=== PATIENT | female | born 2005 | race Two or more races ===

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

== ENCOUNTER 2025-02-19 19:12 | Observation (INO) | payer MEDICAID, SELFPAY ==
[2025-02-19] VITALS (30 sets, daily range): BP systolic 126; BP diastolic 65; PULSE 60–105; RESP 18–99; TEMP 36.9; O2SAT 93–100; BMI 27.0
--- NOTE | 2025-02-19 20:30 | XR_ITS ---
Examination: fairly limited TECHNIQUE: Limited transabdominal sonographic images pelvis Date and time: February 19, 2025 10:39 PM INDICATIONS: Labor evaluation, unknown amniotic fluid index FINDINGS: Amniotic fluid index 16.5 cm IMPRESSION: Amniotic fluid index 16.5 cm
--- NOTE | 2025-02-19 20:30 | XR_ITS ---
Examination: OB Transvaginal ultrasound of the pelvis, limited Technique: Transvaginal sonographic images pelvis performed using lua scale imaging Exam date and time: February 19, 2025 10:10 PM INDICATIONS: Labor evaluation, unknown cervical length. FINDINGS: Cervix 3.9 cm closed IMPRESSION: Cervix 3.9 cm closed
[2025-02-19] MEDS: TERBUTALINE SULF INJ 1 MG/ML VIAL 0.25 MG SC (21:41)
[2025-02-19 22:01] LABS: Collection Type, Urine Clean Catch
[2025-02-19 22:11] LABS: Bilirubin,Urine Negative (Negative); Blood,Urine Negative (Negative); Clarity,Urine Turbid (Clear/Hazy); Color,Urine Lt-Yellow (Lt Yel-Yel); Glucose, Urine Negative (Negative); Ketones,Urine Negative (Negative); Leukocyte Esterase,Urine Positive (Negative); Nitrite,Urine Negative (Negative); PH,Urine 6.5 (5.0-7.0); Protein,Urine Negative (Neg - Trace); RBC,Urine 9 /hpf (0-3); Squamous Epithelial Cell,Urine 20 /hpf (0-5); Urobilinogen,Urine Negative mg/dL (0.0-1.0); WBC,Urine 46 /hpf (0-5)
[2025-02-19] MEDS: ACETAMINOPHEN 500 MG TABLET 1000 MG PO (23:28)
--- NOTE | 2025-02-20 10:22 | PD.LDPN ---
Documentation for date of: 02/20/25 OB Labor Progress Note Pelvic Exam Amniotic membrane status: Intact Contractions Monitor mode: External Contraction frequency: 2-3 Contraction intensity: Mild Assessment and Plan Comments: Concetta is a 19yo with SIUP at 31&4wk presenting to L&D for decreased movements and tightening of her abdomen . She notes no lof, no vaginal bleeding. Current : This has been uncomplicated, she has OB care with Dr. Jenae FORDE negative other than what was described above. Vitals wnl, afebrile General: well developed, well nourished, no acute distress, conversant Cardiac: normal heart rate Lungs: breathing without distress Abdomen: soft, gravid, non-tender, no rebound or guarding NST: reassuring for gestational age with 10x10 accels, no decels, mod corrine Parnell: ctx q3-4min Labs: Urinalysis turbid, spec grav 1.01, +LE, 9RBC, 46WBC, no bacteria, 20 squam (not clean catch) Vaginitis swab positive for farhad and bacterial vaginosis Radiology: Examination: OB Transvaginal ultrasound of the pelvis, limited Technique: Transvaginal sonographic images pelvis performed using lua scale imaging Exam date and time: February 19, 2025 10:10 PM INDICATIONS: Labor evaluation, unknown cervical length. FINDINGS: Cervix 3.9 cm closed IMPRESSION: Cervix 3.9 cm closed Examination: fairly limited TECHNIQUE: Limited transabdominal sonographic images pelvis Date and time: February 19, 2025 10:39 PM INDICATIONS: Labor evaluation, unknown amniotic fluid index FINDINGS: Amniotic fluid index 16.5 cm IMPRESSION: Amniotic fluid index 16.5 cm Assessment: Concetta is a 19yo with SIUP at 31&4wk with decreased movement and pre-term ctx. Contractions spaced out after 1 dose of terbutaline and oral hydration. Cervical length 3.9cm, no concern for labor. Urinalysis was contaminated, Vaginitis swab positive for farhad and bacterial vaginosis. Vitals wnl, benign exam. Reassuring status based on NST/MAYRA (modified BPP). Plan: -Safe for discharge at this time -Rx flagyl 500mg PO BID x7 days. Instructed patient to also order picker/assembler 7 day monostat (or generic version) OTC. Discussed how to use the applicator for the vaginal cream, to use at night and finish full course of both cream and flagyl. Answered all questions regarding medications -Continue routine follow up with Dr. Emanuel -Discussed return precautions Dr. Mckeon
[2025-02-20 14:53] LABS: BVAG Candida Positive (Negative); Bacterial Vaginosis Markers Positive (Negative); Candida glabrata Negative (Negative); Candida krusei PCR Negative (Negative); Trichomonas Negative (Negative)
== END 2025-02-19 23:30 | disposition home or self-care (01) ==
PROVIDERS: Admitting Provider Obstetrics & Gynecology; PCP Family Medicine; Visit Provider Obstetrics & Gynecology
DX: O23.593 Infection of other part of genital tract in pregnancy, third trimester (principal); B96.89 Other specified bacterial agents as the cause of diseases classified elsewhere; O36.8130 Decreased fetal movements, third trimester, not applicable or unspecified; O47.03 False labor before 37 completed weeks of gestation, third trimester; Z3A.31 31 weeks gestation of pregnancy
CPT/HCPCS: 59899; 76815; 76817; 81001; 81514; 96372; J3105; A9270

== ENCOUNTER 2025-03-30 09:04 | Observation (INO) | payer MEDICAID, SELFPAY ==
[2025-03-30 09:10] VITALS: BP 115/66; PULSE 68
[2025-03-30 09:38] VITALS: BP 115/66; PULSE 68; RESP 18; RESP 98; TEMP 36.9; BMI 29.3
== END 2025-03-30 10:05 | disposition home or self-care (01) ==
PROVIDERS: Admitting Provider Obstetrics & Gynecology; PCP Family Medicine; Visit Provider Obstetrics & Gynecology
DX: O47.1 False labor at or after 37 completed weeks of gestation (principal); Z3A.37 37 weeks gestation of pregnancy
CPT/HCPCS: 59025; 59899

== ENCOUNTER 2025-04-13 17:40 | Observation (INO) | payer MEDICAID, SELFPAY ==
[2025-04-13 17:54] VITALS: BP 126/75; PULSE 78
[2025-04-13 17:57] VITALS: BP 126/75; PULSE 78; RESP 18; RESP 99; TEMP 37.2; BMI 29.8
[2025-04-13 18:44] LABS: ROM Kit Exp Date# 11152027; ROM Kit Lot # 58102387
[2025-04-13 18:45] LABS: ROM Swab Mixed By: EN; Rupture of Fetal Membranes Negative (Negative); Swb Mxed in Solvent 1 min? Yes
[2025-04-13 19:22] LABS: ROM Kit Exp Date# 11152027; ROM Kit Lot # 58102387; ROM Swab Mixed By: PC; Rupture of Fetal Membranes Negative (Negative); Swb Mxed in Solvent 1 min? Yes
== END 2025-04-13 20:45 | disposition home or self-care (01) ==
PROVIDERS: Admitting Provider Obstetrics & Gynecology; Visit Provider Obstetrics & Gynecology
DX: O26.853 Spotting complicating pregnancy, third trimester (principal); Z3A.39 39 weeks gestation of pregnancy
CPT/HCPCS: 59025; 59899; 84112

== ENCOUNTER 2025-04-15 18:12 | Inpatient (IN) | payer MEDICAID, SELFPAY ==
[2025-04-15] VITALS (8 sets, daily range): BP systolic 115–140; BP diastolic 64–80; PULSE 56–88; RESP 19–99; TEMP 36.8–37.2; BMI 30.4
[2025-04-15 19:05] LABS: Basophils # (Auto) 0.0 Thou/mm3 (0.0-0.2); Basophils % (Auto) 0 % (0-2.5); Eosinophils # (Auto) 0.1 Thou/mm3 (0.0-0.5); Eosinophils % (Auto) 1 % (0-10); Hematocrit 32.7 % (36.0-46.0); Hemoglobin 11.5 g/dL (12.0-16.0); Immature Granulocytes Auto 0.03 Thou/mm3 (0.00-0.00); Lymphocytes # (Auto) 1.4 Thou/mm3 (1.0-5.0); Lymphocytes % (Auto) 15 % (10-50); Mean Corpuscular HGB Conc 35.2 g/dl (31.0-37.0); Mean Corpuscular Hemoglobin 32.8 pg (25.0-35.0); Mean Corpuscular Volume 93 fL (80-100); Monocytes # (Auto) 0.8 Thou/mm3 (0.0-0.8); Monocytes % (Auto) 8 % (0-12); Neutrophils # (Auto) 6.9 Thou/mm3 (1.8-7.7); Neutrophils % (Auto) 75 % (37-80); Nucleated Red Blood Cell # 0.00 Thou/mm3 (0.00-0.00); Nucleated Red Blood Cell % 0 /100 WBC (0); Platelet Count 223 Thou/mm3 (140-440); RDW Standard Deviation 42.8 fL (36.4-46.3); Red Blood Count 3.51 Miln/mm3 (4.00-5.20); White Blood Count 9.1 Thou/mm3 (4.5-11.0)
[2025-04-15 19:38] LABS: Alanine Aminotransferase 18 U/L (10-49); Albumin, Serum 3.5 gm/dL (3.5-5.0); Albumin/Globulin Ratio 1.6 (1.2-2.2); Alkaline Phosphatase 216 U/L (46-116); Anion Gap 12 (7-16); Aspartate Amino Transferase 30 U/L (0-34); BUN/Creatinine Ratio 8 Ratio (12-20); Bilirubin,Total 0.5 mg/dL (0.3-1.2); Blood Urea Nitrogen < 5 mg/dL (9-23); Calcium 9.0 mg/dL (8.3-10.6); Calcium (Corrected) 9.4 mg/dL (8.5-10.1); Carbon Dioxide 20.5 mMol/L (20.0-31.0); Chloride 107 mMol/L (98-107); Creatinine (Component) 0.6 mg/dL (0.6-1.3); Estimated Creatinine Clearance 139.7 mL/min (>60); Globulin 2.2 gm/dL (2.3-3.5); Glucose 107 mg/dL (74-106); Osmolality,Calculated 274 (275-295); Potassium 3.5 mMol/L (3.4-5.1); Sodium 139 mMol/L (136-145); Total Protein 5.7 gm/dL (5.7-8.2); eGFR > 60 See Note
[2025-04-15] MEDS: Ampicillin Inj 2,000 MG in SODIUM CHLORIDE 0.9% (POP) 100 ML 200 MG IV (19:53)
[2025-04-15] MEDS: RINGERS LACTATED 1000 ML 1,000 ML 100 ML IV (19:54)
[2025-04-15 19:56] LABS: Syphilis Nonreactive (Nonreactive)
--- NOTE | 2025-04-15 21:19 | PD.LDHP ---
Documentation for date of: 04/15/25 OB Labor/Induct. HPI History of Present Illness Chief complaint: leakage of fluid : 1 Para: 0 Term pregnancies: 0 pregnancies: 0 Living children: 0 History of Abortions: Spontaneous and Elective: 0 History of Vaginal deliveries: 0 History of sections: No History of : No YANIQUE: 04/19/25 Gestational Age (weeks): 39 Gestational Age (days): 3 History of present illness: Patient presents for loss of fluid, clear, that occurred at 1710 tonight. No regular/painful ctx. No vaginal bleeding. Normal movement. No fevers/chills. History of Present Adequate Care: Yes Narrative: Care with Dr. Emanuel at [facility] Hx of anxiety, depression, PTSD- no meds Hx of chlamydia in past, but negative in GBS positive Labs Maternal Blood Type: O Pos Labs: Positive: Rubella Titre and Group Beta Strep and Negative: RPR, Hepatitis B, HIV, Chlamydia and Gonorrhea Review of Systems Review of Systems Narrative Review of Systems: Review of Systems Systems Reviewed: All systems reviewed, normal except as documented Constitutional Constitutional: Denies body ache(s), Denies chills, Denies fever(s) and Denies headache(s) ENT Ears, Nose, Mouth, and Throat: Denies headache(s) and Denies vertigo Cardiovascular Cardiovascular: Denies chest pain, Denies palpitations, Denies dyspnea and Denies syncope Respiratory Respiratory: Denies cough, Denies dyspnea Gastrointestinal Gastrointestinal: Denies nausea and Denies vomiting Neurologic Neurologic: Denies convulsions, Denies headache(s), Denies other visual disturbances, Denies syncope and Denies vertigo Past Medical History Family History OTHER FAMILY HX: non-contributory Surgical History SURGICAL: Negative Section Social History SOCIAL: No tobacco/ETOH/illicit drug use Past Medical History Comments PMH COMMENT: Hx of anxiety, depression, PTSD- no meds Hx of chlamydia in past, but negative in Meds Home Medications and Allergies Home Medications ?Medication ?Instructions ?Recorded ?Confirmed ?Type vit no.95-ferrous 1 tab PO QDAY 02/19/25 02/19/25 History fumarate 28 mg-folic acid 800 mcg tablet () Allergies Allergy/AdvReac Type Severity Reaction Status Date / Time No Known Drug Allergies Allergy Verified 02/19/25 20:35 OB Exam Physical Exam Vital signs: Temp Pulse Resp BP 98.3 F 56 L 19 119/67 04/15/25 18:19 04/15/25 20:54 04/15/25 18:19 04/15/25 20:54 Narrative: General: well developed, well nourished, no acute distress, conversant Cardiac: normal heart rate Lungs: breathing without distress Abdomen: soft, gravid, non-tender, no rebound or guarding Extremities: no pain with palpation of calves Detailed Labor and Delivery Exam Dilation (cm): 2 Effacement (%): 50 Cervix position: posterior station: -2 Consistency: medium Presentation: Vertex Membranes: ruptured Amniotic fluid: clear Baseline heart rate: 130 monitor accelerations: 15x15 monitor decelerations: None ferry terminal agent variability: Moderate (11-25) Contraction frequency (min): irregular OB Results Labs 04/15/25 18:40 04/15/25 18:41 Labs: Short CBC 04/15/25 Range/Units 18:40 WBC 9.1 (4.5-11.0) Thou/mm3 Hgb 11.5 L (12.0-16.0) g/dL Hct 32.7 L (36.0-46.0) % Plt Count 223 (140-440) Thou/mm3 BMP 04/15/25 18:41 Sodium 139 Potassium 3.5 Chloride 107 Carbon Dioxide 20.5 BUN < 5 L Creatinine 0.6 Glucose 107 H Calcium 9.0 Liver Function 04/15/25 Range/Units 18:41 Total Bilirubin 0.5 (0.3-1.2) mg/dL AST 30 (0-34) U/L ALT 18 (10-49) U/L Alkaline Phosphatase 216 H (46-116) U/L Albumin 3.5 (3.5-5.0) gm/dL OB Assessment & Plan Assessment and Plan (1) PROM (premature rupture of membranes): Status: Acute Assessment and plan: Concetta is a 19yo with SIUP at 39&3wk with PROM, clear at 1710 on 04/15. Grossly ruptured. Occasional/irregular ctx, SCE: 2/50/-2. Vitals wnl, benign exam. Reassuring assessment. PMhx/ complicated by: Care with Dr. Emanuel at [facility] Hx of anxiety, depression, PTSD- no meds Hx of chlamydia in past, but negative in GBS positive Plan: -Admit to L&D -Establish IV, routine labs -CEFM -Clear liquid diet -Advice Nurse/consent re: -GBS status: positive. Ampicillin per protocol. -Augment with cytotec PO prn -Anticipate -Safe to proceed (1) PROM (premature rupture of membranes) Qualifiers: PROM gestational age: full term PROM onset of labor timing: unspecified duration between rupture of membranes and onset of labor Qualified Code(s): O42.92 - Full-term premature rupture of membranes, unspecified as to length of time between rupture and onset of labor
[2025-04-16] VITALS (154 sets, daily range): BP systolic 99–139; BP diastolic 53–79; PULSE 56–131; RESP 16–18; TEMP 36.7–37.2; O2SAT 92–100
[2025-04-16] MEDS: Ampicillin Inj 1,000 MG in SODIUM CHLORIDE 0.9% (Popper) 50 ML 50 MG IV ×3 (00:31→08:33)
[2025-04-16] MEDS: fentaNYL CIT INJ 50 mCg/ML AMP 2ML 100 MCG IVP ×4 (01:56→05:35)
[2025-04-16] MEDS: RINGERS LACTATED 1000 ML 1,000 ML 100 ML IV ×2 (03:31→06:49)
[2025-04-16] MEDS: BENZO/LANO/ALOE (Dermoplast) 60 GM CAN 1 SPRAY TOP (12:35)
[2025-04-16] MEDS: OXYTOCIN in NS 20 units 20 UNIT/1,000 ML BAG 125 UNIT IV (12:36)
[2025-04-16] MEDS: IBUPROFEN TAB 400 MG TABLET 800 MG PO ×2 (12:37→23:44)
--- NOTE | 2025-04-16 13:05 | PD.LDDELS ---
Data ([place]) Data Hx Section: No : 1 Term: 0 : 0 Livin Abortions: Spontaneous & Theraputic: 0 Delivery Data (Car[place]) Labor Data Initiation of labor: Spontaneous Induction/Augmentation Agent: None ROM date: 04/15/25 ROM time: 17:10 Amniotic membrane rupture type: Spontaneous Amniotic fluid description: Clear Delivery Data Onset of labor date: 04/16/25 Onset of labor time: 06:30 Complete dilation date: 04/16/25 Complete dilation time: 11:04 delivery date: 04/16/25 delivery time: 12:14 Placenta delivery date: 04/16/25 Placenta delivery time: 12:22 Stage 1 total time: Labor - Stage 1 Duration 4 hours and 34 minutes Delivered by: Mike FAYE Delivery nurse: Kyleigh Pederson RN [place] nurse: Zenobia Barnard RN Rounding Machine Tender at delivery: No Support person(s) at delivery: FOB, mother of patient Other staff at delivery: Oscar Tilley RN Delivery Method Delivery method: Normal Vaginal Delivery Presentation: Vertex Anesthesia Type Anesthesia Type: Local and Epidural Placenta Placenta delivery description: Spontaneous cord blood collection: Cord Blood Type Episiotomy Episiotomy description: None EBL Estimated blood loss (ml): 200 Umbilical Cord cord description: 3 Vessels Additional Procedures Concetta is a 19yo [id number] s/p uncomplicated after presenting with PROM at 39w3d, delivering at 1214 on 04/16/2025. On presentation, SCE was 2cm. She progressed with cytotec and pitocin augmentation to C/C/+2 at which point she began pushing. She had received an epidural at 4cm. With good maternal pushing efforts, infant's head delivered OA and restituted AMEENA. Left anterior shoulder delivered easily followed by posterior shoulder and corpus. Right compound hand. Infant had spontaneous cry and was vigorous. Apgars 9/9. Very short cord, so held near maternal perineum where nose/mouth were suctioned and dried/stimulated. After approximately 1 minute, cord was clamped x2 and cut by FOB. taken to warmer. Cord blood collected for typing. With fundal massage and cord traction, placenta delivered spontaneously and intact with 3 vessel centrally inserted cord. Bimanual massage performed and IV pitocin given per protocol with fundus then firm at u-2cm and hemostasis noted. Inspection of perineum and vagina revealed a 2nd degree midline perineal laceration which was repaired in routine fashion with 3-0 vicryl after anesthetizing with 1% lidocaine- total reapproximation and hemostasis achieved. All counts correct x2. Mom and were doing well when I left the room. Jordyn Mckeon MD Complications Complications: none [place] Data (Car[place]ales) Data order: 1 's gender: Male weight (gms): 3250 g Weight (pounds): 7 lbs and 2.6 ozs [place] length: 53 cm 1 minute: 9 5 minutes: 9
[2025-04-16] MEDS: ACETAMINOPHEN 325 MG TABLET 650 MG PO (17:04)
[2025-04-16] MEDS: DOCUSATE SOD 100 MG CAPSULE PO (20:48)
[2025-04-17 04:33] VITALS: BP 113/74; PULSE 77; RESP 18; TEMP 36.6; O2SAT 97
[2025-04-17 06:56] LABS: Basophils # (Auto) 0.0 Thou/mm3 (0.0-0.2); Basophils % (Auto) 0 % (0-2.5); Eosinophils # (Auto) 0.1 Thou/mm3 (0.0-0.5); Eosinophils % (Auto) 1 % (0-10); Hematocrit 28.0 % (36.0-46.0); Hemoglobin 9.8 g/dL (12.0-16.0); Immature Granulocytes Auto 0.06 Thou/mm3 (0.00-0.00); Lymphocytes # (Auto) 2.3 Thou/mm3 (1.0-5.0); Lymphocytes % (Auto) 16 % (10-50); Mean Corpuscular HGB Conc 35.0 g/dl (31.0-37.0); Mean Corpuscular Hemoglobin 33.8 pg (25.0-35.0); Mean Corpuscular Volume 97 fL (80-100); Monocytes # (Auto) 1.2 Thou/mm3 (0.0-0.8); Monocytes % (Auto) 9 % (0-12); Neutrophils # (Auto) 10.4 Thou/mm3 (1.8-7.7); Neutrophils % (Auto) 74 % (37-80); Nucleated Red Blood Cell # 0.00 Thou/mm3 (0.00-0.00); Nucleated Red Blood Cell % 0 /100 WBC (0); Platelet Count 162 Thou/mm3 (140-440); RDW Standard Deviation 46.4 fL (36.4-46.3); Red Blood Count 2.90 Miln/mm3 (4.00-5.20); White Blood Count 14.1 Thou/mm3 (4.5-11.0)
[2025-04-17] MEDS: DOCUSATE SOD 100 MG CAPSULE PO (08:16)
[2025-04-17 08:20] VITALS: BP 121/71; PULSE 80; RESP 18; TEMP 36.9; O2SAT 97
[2025-04-17 12:10] VITALS: BP 109/58; PULSE 75; RESP 17; TEMP 36.9; O2SAT 97
--- NOTE | 2025-04-17 12:28 | ESDS_ITS ---
DS: Providers Provider Date of admission: 04/15/25 18:25 Primary care physician: Physician No Primary/Family Admitting Provider: Jordyn Mckeon MD Attending Provider on Admission: Jordyn Mckeon MD Consults: 04/16/25 13:02 Referral Routine Comment: Attending Provider on DC: Jordyn Mckeon MD Discharging Provider: Jordyn Mckeon MD DS: Diagnosis Discharge Diagnosis (1) care and examination immediately after delivery: Status: Acute (2) PROM (premature rupture of membranes): Status: Acute Problem List Completed Was Problem List Reviewed/Reconciled?: Yes Summary/Hosp Course Brief History: Concetta is a 19yo [id number] s/p uncomplicated at 39&4wk after presenting in active labor, delivering at 1214 on 04/16/25. She has had an uncomplicated course, meeting all milestones and feels ready for discharge home. She is ambulating without lightheadedness, tolerating regular diet no n/v, spontaneously voiding without issue. She has no chest pain or shortness of breath. No fevers or chills. Minimal, appropriate discomfort. Vitals normal, benign exam. Hemodynamically stable with no evidence of infection. PP Hgb 9.8 from 11.5. Peripartum Data Delivery Method: Normal Vaginal Delivery Episiotomy Description: None Status at Discharge Functional status at discharge: independent ambulation Overall status at discharge: patient is back to baseline Time Spent with Patient Time attestation: Total time spent providing and/or coordinating discharge services: Exam Vital Signs Temp Pulse Resp BP Pulse Ox O2 Del Method 98.4 F 75 17 109/58 L 97 Room Air 04/17/25 12:10 04/17/25 12:10 04/17/25 12:10 04/17/25 12:10 04/17/25 12:10 04/17/25 12:10 Narrative Exam General: well developed, well nourished, no acute distress, conversant Cardiac: normal heart rate Lungs: breathing without distress Abdomen: soft, post-gravid, non-tender, no rebound or guarding, Fundus firm at u-3cm. Extremities: no pain with palpation of calves, trace edema of BLE Discharge Plan Plan Patient Disposition: HOME (Self Care) Patient condition on transfer: Stable Prescriptions/Referrals Prescriptions/Med Rec: New docusate sodium 100 mg Capsule 100 mg PO BID 10 Days Qty: 20 0RF ibuprofen 800 mg tablet 800 mg PO Q8H PRN (Reason: See Comments) 10 Days Qty: 20 0RF ferrous sulfate 325 mg (65 mg iron) tablet 325 mg PO QDAY Qty: 30 0RF Continued PNV no.95-ferrous fumarate-FA [] 28 mg iron- 800 mcg tablet 1 tab PO QDAY Patient Comments: TAKE 1 TABLET BY MOUTH EVERY DAY Referrals: No Primary/Family,Physician [Primary Care Provider] - Patient/Caregiver Discharge Instructions Discharge Activity: activity as tolerated and other Other Discharge Activity Instructions:: vaginal rest and no heavy lifting more than 10 pounds for 6 weeks Other Discharge Diet Instructions: regular Education Materials: After a Vaginal Print Language: Russian Activity Restrictions/Additional Instructions: follow up with your OB clinic in 2 to 4 weeks, call for visit Stand Alone Forms: Kayla Award Info., Patient Portal Info Letter Discharge Order Discharge Orders: Discharge (Routine); Ordered 04/17/25 Ordered By: Jordyn Mckeon Planned Discharge Date 04/17/25 (2) PROM (premature rupture of membranes) Qualifiers: PROM onset of labor timing: unspecified duration between rupture of membranes and onset of labor PROM gestational age: full term Qualified Code(s): O42.92 - Full-term premature rupture of membranes, unspecified as to length of time between rupture and onset of labor
--- NOTE | 2025-04-17 14:04 | PC.NURSE ---
Patient cleared by Helen in social work faculty member
== END 2025-04-17 15:56 | disposition home or self-care (01) | DRG 560 ==
LOC: S4SX 04-18 05:57 → S4NX 04-18 05:57
PROVIDERS: Admitting Provider Obstetrics & Gynecology; Visit Provider Obstetrics & Gynecology
DX: O42.02 Full-term premature rupture of membranes, onset of labor within 24 hours of rupture (principal); O99.824 Streptococcus B carrier state complicating childbirth; Z3A.39 39 weeks gestation of pregnancy; Z37.0 Single live birth; O70.1 Second degree perineal laceration during delivery
CPT/HCPCS: 36415; 59025; 59409; 80053; 85025; 86780; 86850; 86900; 86901; 94762; J0290; J2590; J2795; J3010; J7050; J7120; A9270